=== PATIENT | male | born 1985 | race Caucasian/White ===

== ENCOUNTER 2017-12-20 11:28 | Emergency (ER) | payer SELFPAY ==
[2017-12-20] MEDS ORDERED: Methocarbamol TAB* 500 MG PO ONE (11:44)
[2017-12-20] MEDS ORDERED: Ketorolac INJ* 30 MG/ML 1 ML VIAL IM ONE (11:44)
--- NOTE | 2017-12-20 11:48 | ED ---
Back Pain - HPI Summary HPI Summary: 32-year-old male presents with back pain for the past 2 days. He states that when he was playing softball he stopped short and felt a pull in his back. He states the pain is gradually got worse. He has been taking Advil relief. States been having muscle spasms. Pain is in the lower back. No urinary symptoms. No fevers. No saddle anaesthesia or loss of bowel or bladder. No pain into the legs. No numbness or tingling. No weakness. Pain is worse with movement. Has been having difficulties walking due to the pain. Does not have a history of back pain. - History of Current Complaint Stated Complaint: BACK PAIN Time Seen by Provider: 12/20/17 11:32 - Allergies/Home Medications Allergies/Adverse Reactions: Allergies Allergy/AdvReac Type Severity Reaction Status Date / Time No Known Allergies Allergy Verified 12/20/17 11:52 PMH/Surg Hx/FS Hx/Imm Hx Endocrine/Hematology History: Denies: Hx Anticoagulant Therapy Cardiovascular History: Denies: Hx Hypertension - Family History Known Family History: Negative: Diabetes - Social History Alcohol Use: Occasionally Substance Use Type: Reports: None Review of Systems Negative: Fever Negative: Chest Pain Negative: Shortness Of Breath Positive: Myalgia - back pain All Other Systems Reviewed And Are Negative: Yes Physical Exam Triage Information Reviewed: Yes Vital Signs Reviewed: Yes Appearance: Positive: Well-Appearing Skin: Positive: Warm, Dry Head/Face: Positive: Normal Head/Face Inspection Eyes: Positive: Normal, Conjunctiva Clear ENT: Positive: Pharynx normal Respiratory/Lung Sounds: Positive: Clear to Auscultation, Breath Sounds Present Cardiovascular: Positive: Normal, RRR Abdomen Description: Positive: Nontender, Soft Bowel Sounds: Positive: Present Musculoskeletal: Positive: Limited @ - back, Other - tenderness across lower back, good pulses, sensation grossly intact, neg SLR Neurological: Positive: Normal, Babinski Bilateral - normal Psychiatric: Positive: Normal Diagnostics - Laboratory Lab Statement: Any lab studies that have been ordered have been reviewed, and results considered in the medical decision making process. - Radiology back Xray Interpretation: No Acute Changes Radiology Interpretation Completed By: Radiologist Re-Evaluation - Re-Evaluation First Eval Re-Evaluation Time: 12:58 Change: Improved Comment: feeling a bit better, able to roll over in med but no completely done Back Pain Course/Dx - Course Course Of Treatment: 32-year-old male presents with back pain for the past 2 days. He states that when he was playing softball he stopped short and felt a pull in his back. He states the pain is gradually got worse. He has been taking Advil relief. States been having muscle spasms. Pain is in the lower back. No urinary symptoms. No fevers. No saddle anaesthesia or loss of bowel or bladder. No pain into the legs. No numbness or tingling. No weakness. Pain is worse with movement. Has been having difficulties walking due to the pain. Does not have a history of back pain. On exam has tenderness lower back. Neurovascularly intact. X-ray normal. Gave Toradol and Robaxin feeling a little bit better but pain not completely gone. gave percocet and decadron. will discharge with flexeril. patient requesting work note. patient understand and agrees with plan. - Diagnoses Differential Diagnosis/HQI/PQRI: Positive: Herniated Disc, Strain, Sprain Provider Diagnoses: Back pain Discharge - Sign-Out/Discharge Documenting (check all that apply): Discharge/Admit/Transfer - Discharge Plan Condition: Good Disposition: HOME Prescriptions: Cyclobenzaprine TAB* [Flexeril 10 MG TAB*] 10 mg PO TID PRN #21 tab PRN Reason: Pain Patient Education Materials: Back Pain (ED) Forms: *Work Release Referrals: [facility] [place] [facility] [Outside] Additional Instructions: Take muscle relaxers three times a day Use ibuprofen or Tylenol for pain every 6 hours ice/heat area, move as much as possible Follow up with primary within 5 days Return to ED if develop any new or worsening symptoms - Billing Disposition and Condition Condition: GOOD Disposition: Home
--- NOTE | 2017-12-20 12:46 | RAD ---
INDICATION: Low back pain COMPARISON: None TECHNIQUE: Routine PA, lateral, and oblique imaging was performed . FINDINGS: Bones: There are no acute bony findings. There are no significant osteoarthritic findings. Alignment: Normal Disc spaces: The disc spaces are well-maintained Soft tissues: There are no soft tissue abnormalities. IMPRESSION: NO ACUTE FINDINGS. NO SIGNIFICANT OSTEOARTHRITIC CHANGES.
[2017-12-20] MEDS ORDERED: Dexamethasone IV* 4 MG/ML 1 ML (4 MG) IM ONE (12:56)
[2017-12-20] MEDS ORDERED: oxyCODONE/Acetamin 5/325 MG* TAB PO ONE (12:56)
[2017-12-20] MEDS ORDERED: Dexamethasone IV* 4 MG/ML 1 ML (4 MG) ONE (13:24)
[2017-12-20 14:07] VITALS: BP 115/94
== END 2017-12-20 14:00 | disposition home or self-care (01) ==
LOC: ED 11:28
DX: M54.9 Dorsalgia, unspecified (principal); M62.830 Muscle spasm of back; X50.0XXA Overexertion from strenuous movement or load, initial encounter; Y93.64 Activity, baseball; Y92.9 Unspecified place or not applicable
CPT/HCPCS: 72110; 96372; 99282; A9270-GY; J1100; J1885